=== PATIENT | male | born 1990 | race Caucasian/White ===

== ENCOUNTER 2016-09-23 17:45 | Emergency (ER) | payer OTHER ==
[~2016-09-23] VITALS: Ht 170.2 cm; Wt 44.0 kg
[2016-09-23] MEDS ORDERED: RISP1 PO (18:31)
[2016-09-23] MEDS ORDERED: HALO1 PO (18:31)
[2016-09-23] MEDS ORDERED: ABAC1TAB15 PO (18:31)
[2016-09-23 19:02] LABS: BASOPHILS # (AUTO) 0.05 K/uL (0.00-0.20); BASOPHILS % (AUTO) 0.7 % (0.0-2.0); EOSINOPHILS # (AUTO) 0.36 K/uL (0.00-0.70); EOSINOPHILS % (AUTO) 5.07 % (1.0-6.0); LYMPHOCYTES # (AUTO) 2.4 K/uL (1.0-4.8); LYMPHOCYTES % (AUTO) 33.8 % (22.0-44.0); MEAN CORPUSCULAR HGB CONC 33.3 G/dL (31.0-37.0); MEAN CORPUSCULAR VOLUME 87 fL (80-100); MONOCYTES # (AUTO) 0.9 K/uL (0.1-1.0); NEUTROPHILS # (AUTO) 3.4 K/uL (1.8-7.7); NEUTROPHILS % (AUTO) 48.4 % (40.0-70.0); PLATELET COUNT (AUTO) 241 K/uL (150-450); RED BLOOD CELL COUNT(AUTO) 4.47 MIL/uL (4.50-5.90); RED CELL DISTRIBUTION WIDTH 18.9 % (11.5-14.5); WHITE BLOOD COUNT (AUTO) 7.1 K/uL (4.5-11.0)
[2016-09-23 19:08] LABS: ANION GAP 8 mmol/L (8-16); CALCIUM, TOTAL 8.7 mg/dL (8.8-10.5); CARBON DIOXIDE 29 mmol/L (22-29); CHLORIDE 102 mmol/L (98-107); CREATININE 0.71 mg/dL (0.60-1.30); GLOMERULAR FILTR. RATE CALC > 60 mL/min (>60); POTASSIUM 4.3 mmol/L (3.5-5.1); SODIUM SERUM 139 mmol/L (136-145); UREA NITROGEN, BLOOD 15 mg/dL (7-18)
[2016-09-23 19:15] LABS: ALANINE AMINOTRANSFERASE 65 U/L (12-78); ALBUMIN 3.9 g/dL (3.4-5.0); ASPARTATE AMINOTRANSFERASE 26 U/L (15-37); BILIRUBIN,TOTAL 0.2 mg/dL (0.1-1.0); TOTAL PROTEIN, SERUM 7.9 g/dL (6.4-8.2)
[2016-09-23 21:00] VITALS: BP 126/72
== END 2016-09-23 21:04 | disposition home or self-care (01) ==
LOC: EMS 17:47
DX: F25.9 Schizoaffective disorder, unspecified (principal); F32.9 Major depressive disorder, single episode, unspecified; F41.9 Anxiety disorder, unspecified; F12.10 Cannabis abuse, uncomplicated; F15.10 Other stimulant abuse, uncomplicated; F17.210 Nicotine dependence, cigarettes, uncomplicated
CPT/HCPCS: 36415; 80053; 80307; 85025; 99285; G0480

== ENCOUNTER 2024-04-04 11:16 | Inpatient (IN) | payer MEDICAID, OTHER ==
[~2024-04-04] VITALS: Ht 170.2 cm; Wt 50.0 kg
[~2024-04-04 11:16] MED LIST: ABAC1TAB15 PO; HALO1TAB2 PO; RISP1TAB48 PO
[2024-04-04 11:50] LABS: BASOPHILS % (AUTO) 0.6 % (0.0-2.0); EOSINOPHILS % (AUTO) 4.4 % (1.0-6.0); HEMATOCRIT 32.2 % (41-53); HEMOGLOBIN 10.5 g/dL (13.5-17.5); LYMPHOCYTES # (AUTO) 0.5 K/uL (1.0-4.8); LYMPHOCYTES % (AUTO) 11.1 % (22.0-44.0); MEAN CORPUSCULAR HEMOGLOBIN 27.5 pg (26.0-34.0); MEAN CORPUSCULAR HGB CONC 32.7 G/dL (31.0-37.0); MEAN CORPUSCULAR VOLUME 84 fL (80-100); MONOCYTES # (AUTO) 0.8 K/uL (0.1-1.0); MONOCYTES % (AUTO) 16.5 % (2.0-9.0); NEUTROPHILS # (AUTO) 3.2 K/uL (1.8-7.7); NEUTROPHILS % (AUTO) 67.4 % (40.0-70.0); PLATELET COUNT (AUTO) 143 K/uL (150-450); RED BLOOD CELL COUNT(AUTO) 3.82 MIL/uL (4.50-5.90); RED CELL DISTRIBUTION WIDTH 14.8 % (11.5-14.5); WHITE BLOOD COUNT (AUTO) 4.8 K/uL (4.5-11.0)
[2024-04-04 11:57] LABS: ANION GAP 8 mmol/L (8-16); CALCIUM, TOTAL 8.2 mg/dL (8.8-10.5); CARBON DIOXIDE 30 mmol/L (22-29); CHLORIDE 105 mmol/L (98-107); GLOMERULAR FILTR. RATE CALC > 60 mL/min (>60); GLUCOSE,RANDOM 88 mg/dL (70-110); POTASSIUM 3.4 mmol/L (3.5-5.1); SODIUM SERUM 142 mmol/L (136-145); UREA NITROGEN, BLOOD 17 mg/dL (7-18)
[2024-04-04 12:01] LABS: COVID AG,FIA SOURCE NASAL SWAB
[2024-04-04 12:21] LABS: SARS-COV2 (COVID) ANTIGEN,FIA Negative (Negative)
[2024-04-04] MEDS: HALOPERIDOL LACTATE 5 MG/ML VIAL IM ONE (12:53)
[2024-04-04] MEDS: DiphenhydrAMINE HCL 50 MG/ML VIAL IM ONE (12:53)
[2024-04-04] MEDS: LORazepam 2 MG/ML VIAL IM ONE (12:53)
[2024-04-04 13:30] LABS: ALCOHOL, BLOOD (SERUM) < 3 mg/dL (0-10)
[2024-04-04 18:22] VITALS: BP 106/71; PULSE 88; RESP 22; TEMP 97.8
[2024-04-04 20:10] VITALS: BP 106/71; PULSE 87; RESP 22; TEMP 97.8
[2024-04-04] MEDS ORDERED: ONDANSETRON HCL 4 MG TABLET PO PRN (20:30)
[2024-04-04] MEDS ORDERED: CloNIDine HCL 0.1 MG TABLET PO PRN (20:30)
[2024-04-04] MEDS ORDERED: ACETAMINOPHEN 325 MG TABLET PO PRN (20:30)
[2024-04-04] MEDS ORDERED: PETROLATUM,WHITE 28 GM JELLY TP PRN (20:30)
[2024-04-04] MEDS ORDERED: LOPERAMIDE HCL 2 MG CAPSULE PO PRN (20:30)
[2024-04-04] MEDS ORDERED: NICOTINE 14 MG/24 HOUR PATCH TD PRN (20:30)
[2024-04-04] MEDS ORDERED: MAG HYDROX/ALUMINUM HYD/SIMETH ES 30 ML SUSPENSION UDCUP PO PRN (20:30)
[2024-04-04] MEDS ORDERED: IBUPROFEN 400 MG TABLET PO PRN (20:30)
[2024-04-04] MEDS ORDERED: MAGNESIUM HYDROXIDE SUSPENSION 30 ML UDCUP PO PRN (20:30)
[2024-04-04] MEDS ORDERED: GuaiFENesin/D-METHORPHAN [SUGAR-FREE] 200-20MG/10 ML SYRUP UDCUP PO PRN (20:30)
[2024-04-04] MEDS ORDERED: DOCUSATE SODIUM 100 MG CAPSULE PO PRN (20:30)
[2024-04-04] MEDS ORDERED: ALBUTEROL SULFATE HFA 90 MCG/PUFF 8 GM INHALER IH PRN (20:30)
[2024-04-05 08:19] LABS: HEMOGLOBIN A1C 5.9 % (3.8-5.6)
[2024-04-05 08:32] LABS: CHOL/HDL RATIO 3.1 (4.2-7.3)
[2024-04-05 09:29] VITALS: BP 104/59; PULSE 91; RESP 17; TEMP 97.6; O2SAT 98
[2024-04-05 10:39] LABS: THYROID STIMULATING HORMONE 1.05 uIU/mL (0.36-3.74)
[2024-04-05] MEDS ORDERED: PNEUMOCOCCAL VACCINE POLYVALENT 0.5 ML SYRINGE [PPSV23] IM. ONE (14:30)
[2024-04-05] MEDS: RisperiDONE 0.5 MG TABLET PO SCH (17:56)
[2024-04-05 20:29] VITALS: BP 100/55; PULSE 96; RESP 17; TEMP 97.7; O2SAT 99
[2024-04-06] MEDS: ZOLPIDEM TARTRATE 10 MG TABLET PO PRN (03:10)
[2024-04-06] MEDS: LORazepam 2 MG TABLET PO PRN (03:10)
[2024-04-06 08:07] VITALS: BP 106/69; PULSE 100; RESP 16; TEMP 97.3; O2SAT 100
[2024-04-06] MEDS ORDERED: *NON-FORMULARY MED [ENTER DRUG, DOSE, FREQ IN COMMENTS] CLINICAL ONE (09:15)
[2024-04-06] MEDS: DOLUTEGRAVIR SODIUM 50 MG TABLET PO SCH (17:17)
[2024-04-06] MEDS: ABACAVIR SULFATE 300 MG TABLET PO SCH (17:17)
[2024-04-06] MEDS: HALOPERIDOL 5 MG TABLET PO PRN (17:22)
[2024-04-06 20:21] VITALS: BP 111/72; PULSE 86; RESP 17; TEMP 98; O2SAT 99
[2024-04-07 08:05] VITALS: BP 100/63; PULSE 97; RESP 16; TEMP 98.2; O2SAT 98
[2024-04-07 20:21] VITALS: RESP 16
[2024-04-08 08:05] VITALS: BP 108/60; PULSE 84; RESP 17; TEMP 97.5; O2SAT 99
[2024-04-08 23:49] VITALS: BP 110/64; PULSE 80; RESP 16; TEMP 97.1; O2SAT 99
[2024-04-09 08:19] VITALS: BP 100/60; PULSE 100; RESP 16; TEMP 97.5; O2SAT 100
[2024-04-09 08:53] LABS: APPEARANCE,URINE CLEAR (CLEAR); BILIRUBIN,URINE NEGATIVE (NEGATIVE); COLOR,URINE LIGHT YELLOW (YELLOW); GLUCOSE, URINE (UA) NEGATIVE (NEGATIVE); KETONES,URINE NEGATIVE (NEGATIVE); LEUKOCYTE ESTERASE ,URINE NEGATIVE (NEGATIVE); NITRATE,URINE NEGATIVE (NEGATIVE); OCCULT BLOOD,URINE NEGATIVE (NEGATIVE); PROTEIN,URINE NEGATIVE (NEGATIVE); SPECIFIC GRAVITIY, URINE 1.017 (1.003-1.030); UROBILINOGEN,URINE <=1.0 mg/dL (<=1.0)
[2024-04-09 09:02] LABS: ALCOHOL, URINE DRUG SCREEN NEGATIVE (NEGATIVE); AMPHET/METH SCREEN,URINE NEGATIVE (NEGATIVE); BARBITURATE SCREEN, URINE NEGATIVE (NEGATIVE); BENZODIAZEPINES SCREEN,URINE NEGATIVE (NEGATIVE); CANNABINOID SCREEN,URINE NEGATIVE (NEGATIVE); COCAINE SCREEN,URINE NEGATIVE (NEGATIVE); METHADONE SCREEN, URINE NEGATIVE (NEGATIVE); OPIATE SCREEN,URINE NEGATIVE (NEGATIVE); PHENCYCLIDINE SCREEN,URINE NEGATIVE (NEGATIVE)
== END 2024-04-09 10:45 | disposition left against medical advice (07) | DRG 750 ==
LOC: EMS 11:16 → B3A 15:04
PROVIDERS: ADMIT Psychiatry & Neurology Child & Adolescent Psychiatry; ATTEND Psychiatry & Neurology Child & Adolescent Psychiatry
PROC: GZ52ZZZ Individual Psychotherapy, Cognitive (ICD-10-PCS; principal; 2024-04-05)
PROC: GZ56ZZZ Individual Psychotherapy, Supportive (ICD-10-PCS; 2024-04-05)
DX: F20.9 Schizophrenia, unspecified (principal); Z91.148 Patient's other noncompliance with medication regimen for other reason; D64.9 Anemia, unspecified; E87.6 Hypokalemia; F32.A Depression, unspecified; F41.9 Anxiety disorder, unspecified; Z20.822 Contact with and (suspected) exposure to COVID-19; T43.596A Underdosing of other antipsychotics and neuroleptics, initial encounter; F17.210 Nicotine dependence, cigarettes, uncomplicated; Z79.899 Other long term (current) drug therapy; Y92.89 Other specified places as the place of occurrence of the external cause
CPT/HCPCS: 80048; 80061; 80307; 81003; 83036; 84443; 85025; G0480; J1200; J1630; J2060

== ENCOUNTER 2024-04-16 18:12 | Inpatient (IN) | payer MEDICAID, OTHER ==
[~2024-04-16] VITALS: Ht 170.2 cm; Wt 49.0 kg
[2024-04-16 22:47] LABS: COVID AG,FIA SOURCE NASAL SWAB
[2024-04-16 23:06] LABS: SARS-COV2 (COVID) ANTIGEN,FIA Negative (Negative)
[2024-04-16] MEDS: HALOPERIDOL 1 MG TABLET PO ONE (23:24)
[2024-04-16] MEDS: RisperiDONE 1 MG TABLET PO ONE (23:24)
[2024-04-17] MEDS ORDERED: DiphenhydrAMINE HCL 50 MG/ML VIAL ONE (06:26)
[2024-04-17] MEDS ORDERED: LORazepam 2 MG/ML VIAL ONE (06:26)
[2024-04-17] MEDS: DiphenhydrAMINE HCL 50 MG/ML VIAL IM ONE (06:30)
[2024-04-17] MEDS: LORazepam 2 MG/ML VIAL IM ONE (06:30)
[2024-04-17 06:36] LABS: APPEARANCE,URINE CLEAR (CLEAR); BILIRUBIN,URINE NEGATIVE (NEGATIVE); COLOR,URINE YELLOW (YELLOW); GLUCOSE, URINE (UA) NEGATIVE (NEGATIVE); KETONES,URINE NEGATIVE (NEGATIVE); LEUKOCYTE ESTERASE ,URINE MODERATE (NEGATIVE); NITRATE,URINE NEGATIVE (NEGATIVE); OCCULT BLOOD,URINE NEGATIVE (NEGATIVE); PROTEIN,URINE 30-70 mg/dL (NEGATIVE); SPECIFIC GRAVITIY, URINE 1.033 (1.003-1.030); UROBILINOGEN,URINE <=1.0 mg/dL (<=1.0)
[2024-04-17 06:40] LABS: ALCOHOL, URINE DRUG SCREEN NEGATIVE (NEGATIVE); AMPHET/METH SCREEN,URINE POSITIVE (NEGATIVE); BARBITURATE SCREEN, URINE NEGATIVE (NEGATIVE); BENZODIAZEPINES SCREEN,URINE NEGATIVE (NEGATIVE); CANNABINOID SCREEN,URINE POSITIVE (NEGATIVE); COCAINE SCREEN,URINE NEGATIVE (NEGATIVE); METHADONE SCREEN, URINE NEGATIVE (NEGATIVE); OPIATE SCREEN,URINE NEGATIVE (NEGATIVE); PHENCYCLIDINE SCREEN,URINE NEGATIVE (NEGATIVE)
[2024-04-17 06:53] LABS: BACTERIA,URINE None Seen /HPF (None Seen); RBC,URINE None Seen /HPF (0-2); SQUAMOUS EPITHELIAL CELL,UR Few /LPF (None Seen)
[2024-04-17 10:14] VITALS: BP 92/61; PULSE 72; RESP 18; TEMP 97.2; O2SAT 99
[2024-04-17 10:15] VITALS: BP 92/61; PULSE 78; RESP 18; TEMP 97.2; O2SAT 99
[2024-04-17] MEDS: RisperiDONE 1 MG TABLET PO SCH (13:11)
[2024-04-17] MEDS: DOLUTEGRAVIR SODIUM 50 MG TABLET PO SCH (13:19)
[2024-04-17] MEDS: ABACAVIR SULFATE 300 MG TABLET PO SCH (13:19)
[2024-04-17] MEDS: LORazepam 2 MG TABLET PO PRN (17:26)
[2024-04-17] MEDS: HALOPERIDOL 5 MG TABLET PO PRN (17:26)
[2024-04-17 21:36] VITALS: RESP 18
[2024-04-18 09:07] VITALS: BP 90/50; PULSE 92; RESP 19; TEMP 97.5; O2SAT 100
[2024-04-18] MEDS ORDERED: CloNIDine HCL 0.1 MG TABLET PO PRN (16:00)
[2024-04-18] MEDS ORDERED: GuaiFENesin/D-METHORPHAN [SUGAR-FREE] 200-20MG/10 ML SYRUP UDCUP PO PRN (16:00)
[2024-04-18] MEDS ORDERED: PETROLATUM,WHITE 28 GM JELLY TP PRN (16:00)
[2024-04-18] MEDS ORDERED: ONDANSETRON 4 MG TABLET PO PRN (16:00)
[2024-04-18] MEDS ORDERED: NICOTINE 14 MG/24 HOUR PATCH TD PRN (16:00)
[2024-04-18] MEDS ORDERED: ALBUTEROL SULFATE HFA 90 MCG/PUFF 8 GM INHALER IH PRN (16:00)
[2024-04-18] MEDS ORDERED: ACETAMINOPHEN 325 MG TABLET PO PRN (16:00)
[2024-04-18] MEDS ORDERED: DOCUSATE SODIUM 100 MG CAPSULE PO PRN (16:00)
[2024-04-18] MEDS ORDERED: IBUPROFEN 400 MG TABLET PO PRN (16:00)
[2024-04-18] MEDS ORDERED: MAG HYDROX/ALUMINUM HYD/SIMETH ES 30 ML SUSPENSION UDCUP PO PRN (16:00)
[2024-04-18] MEDS ORDERED: MAGNESIUM HYDROXIDE SUSPENSION 30 ML UDCUP PO PRN (16:00)
[2024-04-18 21:01] VITALS: BP 93/60; PULSE 90; RESP 18; TEMP 97.6; O2SAT 99
[2024-04-18] MEDS: ZOLPIDEM TARTRATE 10 MG TABLET PO PRN (22:29)
[2024-04-19] MEDS: MULTIVITAMINS, THERAPEUTIC TABLET PO SCH (07:59)
[2024-04-19 10:07] LABS: ALANINE AMINOTRANSFERASE 28 U/L (12-78); ALKALINE PHOSPHATASE 84 U/L (46-116); ANION GAP 11 mmol/L (8-16); ASPARTATE AMINOTRANSFERASE 31 U/L (15-37); BILIRUBIN,TOTAL 0.2 mg/dL (0.1-1.0); CALCIUM, TOTAL 8.2 mg/dL (8.8-10.5); CARBON DIOXIDE 26 mmol/L (22-29); CHLORIDE 102 mmol/L (98-107); CREATININE 0.68 mg/dL (0.60-1.30); GLOMERULAR FILTR. RATE CALC > 60 mL/min (>60); GLUCOSE,RANDOM 82 mg/dL (70-110); PHOSPHORUS 3.5 mg/dL (2.5-4.9); POTASSIUM 3.9 mmol/L (3.5-5.1); SODIUM SERUM 139 mmol/L (136-145); THYROID STIMULATING HORMONE 1.92 uIU/mL (0.36-3.74); TOTAL PROTEIN, SERUM 7.5 g/dL (6.4-8.2); UREA NITROGEN, BLOOD 14 mg/dL (7-18)
[2024-04-19 10:44] VITALS: BP 104/71; PULSE 92; RESP 17; TEMP 97.9; O2SAT 100
[2024-04-19 13:57] LABS: BASOPHILS % (AUTO) 0.7 % (0.0-2.0); EOSINOPHILS % (AUTO) 4.2 % (1.0-6.0); HEMATOCRIT 32.7 % (41-53); HEMOGLOBIN 10.7 g/dL (13.5-17.5); LYMPHOCYTES # (AUTO) 0.8 K/uL (1.0-4.8); LYMPHOCYTES % (AUTO) 19.5 % (22.0-44.0); MEAN CORPUSCULAR HGB CONC 32.6 G/dL (31.0-37.0); MEAN CORPUSCULAR VOLUME 86 fL (80-100); MONOCYTES # (AUTO) 0.7 K/uL (0.1-1.0); MONOCYTES % (AUTO) 16.9 % (2.0-9.0); NEUTROPHILS # (AUTO) 2.4 K/uL (1.8-7.7); NEUTROPHILS % (AUTO) 58.7 % (40.0-70.0); PLATELET COUNT (AUTO) 211 K/uL (150-450); RED BLOOD CELL COUNT(AUTO) 3.81 MIL/uL (4.50-5.90); RED CELL DISTRIBUTION WIDTH 15.8 % (11.5-14.5)
[2024-04-19] MEDS: ETHYL ALCOHOL 62% ANTISEPTIC NASAL SANITIZER 0.6 ML AMPUL NASAL SCH (20:56)
[2024-04-19 23:44] VITALS: BP 113/65; PULSE 100; RESP 18; TEMP 97.8; O2SAT 100
[2024-04-20 08:37] LABS: CHOL/HDL RATIO 2.7 (4.2-7.3)
[2024-04-20 10:04] VITALS: BP 122/76; PULSE 100; RESP 18; TEMP 97.4; O2SAT 98
[2024-04-20 20:02] VITALS: RESP 18
[2024-04-21 08:43] VITALS: BP 111/70; PULSE 89; RESP 18; TEMP 97.8; O2SAT 98
[2024-04-21 22:10] VITALS: RESP 18
[2024-04-22 10:14] VITALS: BP 118/74; PULSE 90; RESP 18; TEMP 96.9; O2SAT 99
[2024-04-22] MEDS: RisperiDONE 1 MG TABLET PO SCH (18:03)
[2024-04-22 21:28] VITALS: BP 98/54; PULSE 99; RESP 18; TEMP 97.2; O2SAT 98
[2024-04-23] MEDS: LOPERAMIDE HCL 2 MG CAPSULE PO PRN (07:16)
[2024-04-23 09:11] VITALS: BP 101/83; PULSE 100; RESP 16; TEMP 97.7; O2SAT 99
[2024-04-23 21:59] VITALS: BP 116/78; PULSE 89; RESP 18; TEMP 97.3; O2SAT 99
[2024-04-24 08:15] VITALS: BP 108/66; PULSE 99; RESP 19; TEMP 97.6; O2SAT 100
[2024-04-24 17:52] VITALS: BP 129/72; PULSE 99; RESP 18
[2024-04-24 21:51] VITALS: BP 113/71; PULSE 89; RESP 18; TEMP 97.7; O2SAT 96
[2024-04-25 09:14] VITALS: BP 107/59; PULSE 88; RESP 18; TEMP 97; O2SAT 99
[2024-04-25] MEDS ORDERED: RISP-31 PO (12:16)
[2024-04-25 21:29] VITALS: BP 132/67; PULSE 103; RESP 18; TEMP 97.6; O2SAT 98
== END 2024-04-26 08:05 | disposition home or self-care (01) | DRG 750 ==
LOC: EMS 18:12 → 3EI 04-17 09:11 → EMS 04-17 09:11 → 3EC 04-17 09:52 → 3EI 04-23 16:35
PROVIDERS: ADMIT Psychiatry & Neurology Child & Adolescent Psychiatry; ATTEND Psychiatry & Neurology Child & Adolescent Psychiatry
PROC: GZHZZZZ Group Psychotherapy (ICD-10-PCS; principal; 2024-04-19)
DX: F20.0 Paranoid schizophrenia (principal); D64.9 Anemia, unspecified; F32.A Depression, unspecified; F41.9 Anxiety disorder, unspecified; Z20.822 Contact with and (suspected) exposure to COVID-19; G47.00 Insomnia, unspecified; I10 Essential (primary) hypertension; Z59.00 Homelessness unspecified; Z87.891 Personal history of nicotine dependence
CPT/HCPCS: 80053; 80061; 80307; 81001; 83036; 83735; 84100; 84443; 85025; 87081; 99285; J1200; J2060

== ENCOUNTER 2024-11-26 19:29 | Inpatient (IN) | payer MEDICAID, OTHER ==
[~2024-11-26] VITALS: Ht 170.2 cm; Wt 55.6 kg
[~2024-11-26 19:29] MED LIST changes: -ABAC1TAB15 PO; -HALO1TAB2 PO; +RISP-31 PO; -RISP1TAB48 PO
[2024-11-26 19:52] LABS: BASOPHILS % (AUTO) 0.4 % (0.0-2.0); EOSINOPHILS % (AUTO) 1.4 % (1.0-6.0); HEMATOCRIT 43.8 % (41-53); HEMOGLOBIN 14.1 g/dL (13.5-17.5); LYMPHOCYTES # (AUTO) 1.5 K/uL (1.0-4.8); LYMPHOCYTES % (AUTO) 24.1 % (22.0-44.0); MEAN CORPUSCULAR HEMOGLOBIN 29.4 pg (26.0-34.0); MEAN CORPUSCULAR HGB CONC 32.3 G/dL (31.0-37.0); MEAN CORPUSCULAR VOLUME 91 fL (80-100); MONOCYTES # (AUTO) 0.3 K/uL (0.1-1.0); MONOCYTES % (AUTO) 4.7 % (2.0-9.0); NEUTROPHILS # (AUTO) 4.4 K/uL (1.8-7.7); NEUTROPHILS % (AUTO) 69.4 % (40.0-70.0); PLATELET COUNT (AUTO) 260 K/uL (150-450); RED BLOOD CELL COUNT(AUTO) 4.82 MIL/uL (4.50-5.90); RED CELL DISTRIBUTION WIDTH 15.4 % (11.5-14.5); WHITE BLOOD COUNT (AUTO) 6.4 K/uL (4.5-11.0)
[2024-11-26 20:01] LABS: ANION GAP 15 mmol/L (8-16); CARBON DIOXIDE 22 mmol/L (22-29); CHLORIDE 105 mmol/L (98-107); CREATININE 0.87 mg/dL (0.60-1.30); GLOMERULAR FILTR. RATE CALC > 60 mL/min (>60); GLUCOSE,RANDOM 150 mg/dL (70-110); POTASSIUM 3.3 mmol/L (3.5-5.1); SODIUM SERUM 142 mmol/L (136-145); UREA NITROGEN, BLOOD 13 mg/dL (7-18)
[2024-11-26 20:01] LABS: COVID AG,FIA SOURCE NASAL SWAB
[2024-11-26 20:08] LABS: PROTHROMBIN TIME 11.6 SEC (9.4-11.6)
[2024-11-26 20:13] LABS: ALCOHOL, BLOOD (SERUM) < 3 mg/dL (0-10)
[2024-11-26] MEDS: SODIUM CHLORIDE 0.9% 1,000 ML IV ONE ×2 (20:13→21:33)
[2024-11-26] MEDS: MAGNESIUM SULFATE 1 GM in DEXTROSE 5%-WATER 50 ML IV ONE (20:14)
[2024-11-26 20:15] LABS: B-TYPE NATRIURETIC PEPTIDE < 5 pg/mL (0-100)
[2024-11-26 20:16] LABS: CREATINE KINASE, TOTAL ONLY 84 U/L (39-308); TROPONIN I-HIGH SENSITIVITY 5 ng/L (<76)
[2024-11-26 20:21] LABS: SARS-COV2 (COVID) ANTIGEN,FIA Negative (Negative)
[2024-11-26 20:28] LABS: ALBUMIN 3.7 g/dL (3.4-5.0); BILIRUBIN,DIRECT 0.1 mg/dL (0.00-0.20); BILIRUBIN,TOTAL 0.3 mg/dL (0.1-1.0); TOTAL PROTEIN, SERUM 8.3 g/dL (6.4-8.2)
[2024-11-26] MEDS: POTASSIUM CHLORIDE 20 MEQ ER TABLET PO ONE (20:42)
[2024-11-26 21:39] LABS: VALPROIC ACID 487 mcg/mL (50-100)
[2024-11-26] MEDS: POTASSIUM CHL 10 MEQ/WATER 50 ML IV ONE (22:05)
[2024-11-26] MEDS ORDERED: ONDANSETRON HCL 4 MG/2 ML VIAL IVP PRN (22:45)
[2024-11-26] MEDS ORDERED: MAGNESIUM HYDROXIDE SUSPENSION 30 ML UDCUP PO PRN (22:45)
[2024-11-26] MEDS ORDERED: ACETAMINOPHEN 325 MG TABLET PO PRN (22:45)
[2024-11-26] MEDS ORDERED: BISACODYL 10 MG RECTAL RECTAL SUPPOSITORY PR PRN (22:45)
[2024-11-26] MEDS: HEPARIN SODIUM,PORCINE 5,000 UNITS/ML VIAL SQ SCH (23:04)
[2024-11-26 23:56] LABS: ANION GAP 12 mmol/L (8-16); CALCIUM, TOTAL 7.7 mg/dL (8.8-10.5); CARBON DIOXIDE 22 mmol/L (22-29); CHLORIDE 110 mmol/L (98-107); CREATININE 0.86 mg/dL (0.60-1.30); GLOMERULAR FILTR. RATE CALC > 60 mL/min (>60); GLUCOSE,RANDOM 107 mg/dL (70-110); POTASSIUM 4.2 mmol/L (3.5-5.1); SODIUM SERUM 144 mmol/L (136-145); UREA NITROGEN, BLOOD 11 mg/dL (7-18)
[2024-11-27] MEDS ORDERED: LORazepam 2 MG/ML VIAL ONE (00:42)
[2024-11-27] MEDS: LORazepam 2 MG/ML VIAL IVP ONE ×2 (00:46→04:12)
[2024-11-27] MEDS: GLUCAGON,HUMAN RECOMBINANT 1 MG VIAL IVP ONE (01:04)
[2024-11-27] MEDS: PHENYLEPHRINE HCL IN 0.9% NACL 400 MCG/10 ML SYRINGE IVP ONE (01:05)
[2024-11-27] MEDS ORDERED: FentaNYL CIT 1000MCG/0.9% NACL 100 ML IV PRN (01:15)
[2024-11-27] MEDS ORDERED: ETOMIDATE 2 MG/ML 10 ML VIAL ONE (01:15)
[2024-11-27] MEDS ORDERED: ROCURONIUM BROMIDE 10 MG/ML 5 ML VIAL ONE (01:16)
[2024-11-27] MEDS: NOREPINEPHRINE 8 MG/0.9 % NACL 250 ML IV PRN (01:24)
[2024-11-27 01:56] LABS: APPEARANCE,URINE CLEAR (CLEAR); BILIRUBIN,URINE NEGATIVE (NEGATIVE); COLOR,URINE COLORLESS (YELLOW); GLUCOSE, URINE (UA) NEGATIVE (NEGATIVE); KETONES,URINE NEGATIVE (NEGATIVE); LEUKOCYTE ESTERASE ,URINE NEGATIVE (NEGATIVE); NITRATE,URINE NEGATIVE (NEGATIVE); OCCULT BLOOD,URINE NEGATIVE (NEGATIVE); PH,URINE 5.5 (5.0-8.0); PH,URINE DRUG SCREEN 5.5 (5.0-8.0); PROTEIN,URINE NEGATIVE (NEGATIVE); SPECIFIC GRAVITIY, URINE 1.011 (1.003-1.030); UROBILINOGEN,URINE <=1.0 mg/dL (<=1.0)
[2024-11-27 02:00] LABS: AMPHET/METH SCREEN,URINE NEGATIVE (NEGATIVE); BARBITURATE SCREEN, URINE NEGATIVE (NEGATIVE); BENZODIAZEPINES SCREEN,URINE NEGATIVE (NEGATIVE); CANNABINOID SCREEN,URINE NEGATIVE (NEGATIVE); COCAINE SCREEN,URINE NEGATIVE (NEGATIVE); METHADONE SCREEN, URINE NEGATIVE (NEGATIVE); OPIATE SCREEN,URINE NEGATIVE (NEGATIVE); PHENCYCLIDINE SCREEN,URINE NEGATIVE (NEGATIVE)
[2024-11-27 02:02] LABS: ALCOHOL, URINE DRUG SCREEN NEGATIVE (NEGATIVE)
[2024-11-27] MEDS: CALCIUM GLUCONATE 1,000 MG in DEXTROSE 5%-WATER 50 ML IV ONE (03:10)
[2024-11-27] MEDS: LevOCARNitine 200 MG/ML 5 ML VIAL IVP ONE (03:21)
[2024-11-27] MEDS: ACETAMINOPHEN 650 MG/ISO-OSM 65 ML IV ONE (04:39)
[2024-11-27] MEDS: LORazepam 2 MG/ML VIAL IVP PRN (05:36)
[2024-11-27] MEDS: PANTOPRAZOLE SODIUM 40 MG DR TABLET PO SCH (08:23)
[2024-11-27] MEDS: DOCUSATE SODIUM 100 MG CAPSULE PO SCH (08:23)
[2024-11-27] MEDS: ACETAMINOPHEN 650 MG RECTAL SUPPOSITORY PR PRN (09:06)
[2024-11-27] MEDS ORDERED: 0.9% SODIUM CHLORIDE 10 ML SYRINGE IVP PRN (10:30)
[2024-11-27] MEDS: SODIUM CHLORIDE 0.9% 1,800 ML IV ONE (10:49)
[2024-11-27] MEDS: PIPERACILLIN/TAZO 3.375 GM/D5W 50 ML IV ONE (10:50)
[2024-11-27 11:02] LABS: GLUCOSE,RANDOM 59 mg/dL (70-110); LACTATE DEHYDROGENASE 224 U/L (85-227)
[2024-11-27 11:32] LABS: LACTIC ACID 2.7 mmol/L (0.4-2.0)
[2024-11-27 12:35] LABS: INFLUENZA TYPE A NEGATIVE FOR TYPE A (NEGATIVE); INFLUENZA TYPE B NEGATIVE FOR TYPE B (NEGATIVE)
[2024-11-27] MEDS: PIPERACILLIN/TAZO 3.375 GM/D5W 50 ML IV SCH (17:27)
[2024-11-27 18:00] VITALS: BP 90/59; PULSE 71; RESP 19; TEMP 97.9; O2SAT 98
[2024-11-27 19:22] VITALS: BP 103/73; PULSE 74; RESP 17; TEMP 97.7; O2SAT 98
[2024-11-27] MEDS: SODIUM CHLORIDE 0.9% 250 ML IV ONE (22:23)
[2024-11-27] MEDS: ZOLPIDEM TARTRATE 5 MG TABLET PO PRN (23:15)
[2024-11-28] VITALS: BP 110/83; PULSE 70; RESP 18; TEMP 97.7; O2SAT 99
[2024-11-28 04:03] VITALS: BP 124/64; PULSE 60; RESP 18; TEMP 97.9; O2SAT 96
[2024-11-28 07:27] LABS: BASOPHILS % (AUTO) 0.6 % (0.0-2.0); EOSINOPHILS % (AUTO) 0.1 % (1.0-6.0); HEMOGLOBIN 13.4 g/dL (13.5-17.5); LYMPHOCYTES # (AUTO) 0.5 K/uL (1.0-4.8); LYMPHOCYTES % (AUTO) 6.1 % (22.0-44.0); MEAN CORPUSCULAR HEMOGLOBIN 30.1 pg (26.0-34.0); MEAN CORPUSCULAR HGB CONC 33.5 G/dL (31.0-37.0); MEAN CORPUSCULAR VOLUME 90 fL (80-100); MONOCYTES % (AUTO) 13.2 % (2.0-9.0); NEUTROPHILS # (AUTO) 6.1 K/uL (1.8-7.7); PLATELET COUNT (AUTO) 214 K/uL (150-450); RED BLOOD CELL COUNT(AUTO) 4.45 MIL/uL (4.50-5.90); RED CELL DISTRIBUTION WIDTH 14.7 % (11.5-14.5); WHITE BLOOD COUNT (AUTO) 7.6 K/uL (4.5-11.0)
[2024-11-28 07:33] VITALS: BP 107/73; PULSE 60; RESP 18; TEMP 98.1; O2SAT 99
[2024-11-28 07:39] LABS: ANION GAP 11 mmol/L (8-16); CARBON DIOXIDE 23 mmol/L (22-29); CHLORIDE 105 mmol/L (98-107); CREATININE 0.79 mg/dL (0.60-1.30); GLOMERULAR FILTR. RATE CALC > 60 mL/min (>60); GLUCOSE,RANDOM 71 mg/dL (70-110); POTASSIUM 4.1 mmol/L (3.5-5.1); SODIUM SERUM 139 mmol/L (136-145); UREA NITROGEN, BLOOD 12 mg/dL (7-18)
[2024-11-28 11:32] VITALS: BP 107/82; PULSE 81; RESP 16; TEMP 98.1; O2SAT 98
[2024-11-28 15:03] VITALS: BP 99/67; PULSE 73; RESP 18; TEMP 97.8; O2SAT 98
[2024-11-28 20:31] VITALS: BP 103/80; PULSE 94; RESP 18; TEMP 98.4; O2SAT 99
[2024-11-28 23:15] LABS: HEMATOCRIT 39.5 % (41-53); HEMOGLOBIN 13.1 g/dL (13.5-17.5)
[2024-11-29] VITALS: BP 105/68; PULSE 78; RESP 17; TEMP 97.9; O2SAT 99
[2024-11-29 01:36] LABS: APPEARANCE,URINE CLEAR (CLEAR); BILIRUBIN,URINE NEGATIVE (NEGATIVE); COLOR,URINE LIGHT YELLOW (YELLOW); GLUCOSE, URINE (UA) NEGATIVE (NEGATIVE); KETONES,URINE NEGATIVE (NEGATIVE); LEUKOCYTE ESTERASE ,URINE TRACE (NEGATIVE); NITRATE,URINE NEGATIVE (NEGATIVE); OCCULT BLOOD,URINE MODERATE (NEGATIVE); PROTEIN,URINE NEGATIVE (NEGATIVE); SPECIFIC GRAVITIY, URINE 1.015 (1.003-1.030); UROBILINOGEN,URINE <=1.0 mg/dL (<=1.0)
[2024-11-29 01:53] LABS: BACTERIA,URINE None Seen /HPF (None Seen); SQUAMOUS EPITHELIAL CELL,UR Few /LPF (None Seen); WBC,URINE 0-2 /HPF (0-5)
[2024-11-29 04:09] VITALS: BP 100/79; PULSE 76; RESP 18; TEMP 98.2; O2SAT 99
[2024-11-29 07:12] LABS: ANION GAP 8 mmol/L (8-16); CALCIUM, TOTAL 8.8 mg/dL (8.8-10.5); CARBON DIOXIDE 27 mmol/L (22-29); CHLORIDE 104 mmol/L (98-107); CREATININE 0.62 mg/dL (0.60-1.30); GLOMERULAR FILTR. RATE CALC > 60 mL/min (>60); GLUCOSE,RANDOM 90 mg/dL (70-110); POTASSIUM 3.5 mmol/L (3.5-5.1); SODIUM SERUM 139 mmol/L (136-145); UREA NITROGEN, BLOOD 14 mg/dL (7-18)
[2024-11-29 07:15] VITALS: BP 94/65; PULSE 68; RESP 19; TEMP 97.9; O2SAT 97
[2024-11-29 07:17] LABS: BASOPHILS % (AUTO) 0.8 % (0.0-2.0); HEMATOCRIT 40.6 % (41-53); HEMOGLOBIN 13.5 g/dL (13.5-17.5); LYMPHOCYTES # (AUTO) 0.7 K/uL (1.0-4.8); LYMPHOCYTES % (AUTO) 13.3 % (22.0-44.0); MEAN CORPUSCULAR HEMOGLOBIN 30.1 pg (26.0-34.0); MEAN CORPUSCULAR HGB CONC 33.4 G/dL (31.0-37.0); MEAN CORPUSCULAR VOLUME 90 fL (80-100); MONOCYTES % (AUTO) 17.2 % (2.0-9.0); NEUTROPHILS # (AUTO) 3.4 K/uL (1.8-7.7); NEUTROPHILS % (AUTO) 67.7 % (40.0-70.0); PLATELET COUNT (AUTO) 183 K/uL (150-450); RED CELL DISTRIBUTION WIDTH 14.8 % (11.5-14.5)
[2024-11-29 07:18] LABS: MONOCYTES # (AUTO) 0.9 K/uL (0.1-1.0)
[2024-11-29 11:52] VITALS: BP 104/58; PULSE 66; RESP 19; TEMP 98; O2SAT 98
[2024-11-29] MEDS ORDERED: HYDROX5L PO (14:39)
[2024-11-29] MEDS ORDERED: DOLU50TA PO (14:39)
[2024-11-29] MEDS ORDERED: PROP60TA19 PO (14:39)
[2024-11-29] MEDS ORDERED: BUPR450T5 PO (14:39)
[2024-11-29] MEDS ORDERED: DAPS100T14 PO (14:39)
[2024-11-29] MEDS ORDERED: VALP250C48 PO (14:39)
[2024-11-29] MEDS ORDERED: EMTR1TAB13 PO (14:39)
[2024-11-29 15:19] VITALS: BP 111/65; PULSE 77; RESP 20; TEMP 98; O2SAT 98
[2024-11-29 19:30] VITALS: BP 96/64; PULSE 73; RESP 18; TEMP 98.1; O2SAT 98
[2024-11-29] MEDS ORDERED: SODIUM CHLORIDE 0.9% 500 ML IV ONE (23:43)
[2024-11-30 04:20] VITALS: BP 96/67; PULSE 74; RESP 18; TEMP 97.5; O2SAT 98
[2024-11-30 07:35] VITALS: BP 104/75; PULSE 80; RESP 18; TEMP 97.9; O2SAT 98
[2024-11-30] MEDS ORDERED: ACET-2247 PO (13:28)
[2024-11-30] MEDS ORDERED: BISA-151 PO (13:29)
[2024-11-30] MEDS ORDERED: AMOX1TAB15 PO (13:32)
[2024-11-30] MEDS ORDERED: BISA10SU11 PR (13:54)
[2024-11-30] MEDS: DOLUTEGRAVIR SODIUM 50 MG TABLET PO SCH (15:21)
[2024-11-30] MEDS: EMTRICITABINE/TENOFOV ALAFENAM 200-25 MG TABLET PO SCH (15:21)
[2024-11-30 15:40] VITALS: BP 100/74; PULSE 82; RESP 16; TEMP 97.5; O2SAT 98
[2024-11-30 20:05] VITALS: BP 92/69; PULSE 94; RESP 18; TEMP 98.1; O2SAT 96
[2024-11-30] MEDS: QUEtiapine FUMARATE 200 MG TABLET PO SCH (20:38)
[2024-12-01 05:52] VITALS: BP 103/63; PULSE 84; RESP 18; TEMP 98.1; O2SAT 98
[2024-12-01 08:07] VITALS: BP 106/70; PULSE 109; RESP 20; TEMP 98; O2SAT 98
[2024-12-01] MEDS: QUEtiapine FUMARATE 25 MG TABLET PO SCH (08:07)
[2024-12-01 16:18] VITALS: BP 101/80; PULSE 107; RESP 20; TEMP 98.1; O2SAT 98
[2024-12-01 19:55] VITALS: BP 94/63; PULSE 93; RESP 20; TEMP 99; O2SAT 98
[2024-12-01 21:33] LABS: COVID AG,FIA SOURCE NASAL SWAB
[2024-12-01 21:51] LABS: SARS-COV2 (COVID) ANTIGEN,FIA Negative (Negative)
[2024-12-02 04:06] VITALS: BP 95/67; PULSE 86; RESP 18; TEMP 97.7; O2SAT 100
== END 2024-12-02 05:13 | DRG 817 ==
LOC: EMS 19:29 → EDH 22:31 → 5S 11-27 18:00 → 6S 11-29 19:38
PROVIDERS: ADMIT Internal Medicine; ATTEND Internal Medicine
DX: T42.6X2A Poisoning by other antiepileptic and sedative-hypnotic drugs, intentional self-harm, initial encounter (principal); J69.0 Pneumonitis due to inhalation of food and vomit; A41.9 Sepsis, unspecified organism; G92.8 Other toxic encephalopathy; R56.9 Unspecified convulsions; F32.A Depression, unspecified; F41.9 Anxiety disorder, unspecified; F25.9 Schizoaffective disorder, unspecified; Z20.822 Contact with and (suspected) exposure to COVID-19; Z65.3 Problems related to other legal circumstances; Z79.899 Other long term (current) drug therapy; Z87.891 Personal history of nicotine dependence; Y92.89 Other specified places as the place of occurrence of the external cause
CPT/HCPCS: 71045; 80048; 80076; 80164; 80307; 81001; 81003; 82140; 82550; 82947; 83605; 83615; 83735; 83880; 84145; 84484; 85014; 85018; 85025; 85610; 85730; 87040; 87804; 93005; 95816; 96365; 96368; 99285; G0378; G0480; J0131; J0610; J1610; J1644; J1955; J2060; J2543; J3475; J3480; J3490; J7040; J7050; J7060; 36415-L1; 36415-TC

== ENCOUNTER 2024-12-01 15:34 | Inpatient (IN) | payer MEDICAID, OTHER ==
[~2024-12-01] VITALS: Ht 170.2 cm; Wt 62.8 kg
[~2024-12-01 15:34] MED LIST changes: +ACET-2247 PO; +AMOX1TAB15 PO; +BISA-151 PO; +BISA10SU11 PR; +BUPR450T5 PO; +DAPS100T14 PO; +DOLU50TA PO; +EMTR1TAB13 PO; +HYDROX5L PO; +PROP60TA19 PO; +VALP250C48 PO
[2024-12-02] MEDS ORDERED: LORazepam 2 MG TABLET PO PRN (03:30)
[2024-12-02] MEDS ORDERED: ZOLPIDEM TARTRATE 10 MG TABLET PO PRN (03:30)
[2024-12-02] MEDS ORDERED: HALOPERIDOL 5 MG TABLET PO PRN (03:30)
[2024-12-02 05:50] VITALS: BP 109/71; PULSE 107; RESP 18; TEMP 97.5; O2SAT 100
[2024-12-02 08:36] VITALS: BP 116/62; PULSE 91; RESP 17; TEMP 98.4; O2SAT 98
[2024-12-02] MEDS: QUEtiapine FUMARATE 25 MG TABLET PO SCH ×2 (10:49→20:43)
[2024-12-02] MEDS ORDERED: IBUPROFEN 400 MG TABLET PO PRN (15:45)
[2024-12-02] MEDS ORDERED: ACETAMINOPHEN 325 MG TABLET PO PRN (15:45)
[2024-12-02] MEDS ORDERED: MAGNESIUM HYDROXIDE SUSPENSION 30 ML UDCUP PO PRN (15:45)
[2024-12-02] MEDS ORDERED: ALBUTEROL SULFATE HFA 90 MCG/PUFF 8 GM INHALER IH PRN (15:45)
[2024-12-02] MEDS ORDERED: GuaiFENesin/D-METHORPHAN [SUGAR-FREE] 200-20MG/10 ML SYRUP UDCUP PO PRN (15:45)
[2024-12-02] MEDS ORDERED: LOPERAMIDE HCL 2 MG CAPSULE PO PRN (15:45)
[2024-12-02] MEDS ORDERED: DOCUSATE SODIUM 100 MG CAPSULE PO PRN (15:45)
[2024-12-02] MEDS ORDERED: ONDANSETRON 4 MG TABLET PO PRN (15:45)
[2024-12-02] MEDS ORDERED: NICOTINE 14 MG/24 HOUR PATCH TD PRN (15:45)
[2024-12-02] MEDS ORDERED: MAG HYDROX/ALUMINUM HYD/SIMETH ES 30 ML SUSPENSION UDCUP PO PRN (15:45)
[2024-12-02] MEDS ORDERED: CloNIDine HCL 0.1 MG TABLET PO PRN (15:45)
[2024-12-02] MEDS ORDERED: PETROLATUM,WHITE 28 GM JELLY TP PRN (15:45)
[2024-12-02] MEDS: AMOX TR/POT CLAV 875 MG/125 MG TABLET PO SCH (17:17)
[2024-12-02 20:22] VITALS: BP 119/67; PULSE 98; RESP 17; TEMP 98.6; O2SAT 100
[2024-12-03 08:27] VITALS: BP 107/70; PULSE 87; RESP 17; TEMP 98.4; O2SAT 99
[2024-12-03 08:42] LABS: HEMOGLOBIN A1C 5.1 % (3.8-5.6)
[2024-12-03 08:53] LABS: CHOL/HDL RATIO 4.7 (4.2-7.3); THYROID STIMULATING HORMONE 0.53 uIU/mL (0.36-3.74)
[2024-12-03] MEDS: EMTRICITABINE/TENOFOV ALAFENAM 200-25 MG TABLET PO SCH (09:23)
[2024-12-03] MEDS: DOLUTEGRAVIR SODIUM 50 MG TABLET PO SCH (09:23)
[2024-12-03 20:10] VITALS: BP 101/68; PULSE 96; RESP 16; TEMP 98.5; O2SAT 97
[2024-12-04 08:19] VITALS: BP 127/83; PULSE 90; RESP 18; TEMP 97.5; O2SAT 98
[2024-12-04] MEDS: ETHYL ALCOHOL 62% ANTISEPTIC NASAL SANITIZER 0.6 ML AMPUL NASAL ONE (09:58)
[2024-12-04] MEDS: ESCITALOPRAM OXALATE 10 MG TABLET PO SCH (18:50)
[2024-12-04 20:00] VITALS: BP 91/56; PULSE 76; RESP 15; TEMP 98.2; O2SAT 98
[2024-12-04] MEDS: ETHYL ALCOHOL 62% ANTISEPTIC NASAL SANITIZER 0.6 ML AMPUL NASAL SCH (20:34)
[2024-12-04] MEDS: CHLORHEXIDINE GLUCONATE 2% TOWELETTE [2'S/6'S] TP SCH (20:34)
[2024-12-05 08:30] VITALS: BP 119/71; PULSE 82; RESP 17; TEMP 97.1; O2SAT 99
[2024-12-05 20:50] VITALS: BP 102/63; PULSE 76; RESP 16; TEMP 97.9; O2SAT 96
[2024-12-06 08:36] VITALS: BP 108/69; PULSE 88; RESP 19; TEMP 96.7; O2SAT 95
[2024-12-06 20:41] VITALS: BP 101/64; PULSE 92; RESP 17; TEMP 98.1; O2SAT 95
[2024-12-07 08:12] VITALS: BP 100/58; PULSE 98; RESP 16; TEMP 97.6; O2SAT 98
[2024-12-07 20:51] VITALS: BP 104/59; PULSE 63; RESP 16; TEMP 96.6; O2SAT 98
[2024-12-08 08:13] VITALS: BP 110/63; PULSE 79; RESP 16; TEMP 97.9; O2SAT 96
[2024-12-08 20:00] VITALS: BP 100/55; PULSE 68; RESP 17; TEMP 97.9; O2SAT 97
[2024-12-09 13:19] VITALS: BP 98/69; PULSE 81; RESP 14; TEMP 98.2; O2SAT 97
[2024-12-09 20:13] VITALS: BP 105/65; PULSE 78; RESP 18; TEMP 98.1; O2SAT 96
[2024-12-09] MEDS: QUEtiapine FUMARATE 200 MG TABLET PO SCH (20:32)
[2024-12-10 08:42] VITALS: BP 101/63; PULSE 61; RESP 19; TEMP 98.3; O2SAT 96
[2024-12-10] MEDS: ESCITALOPRAM OXALATE 10 MG TABLET PO SCH (09:32)
[2024-12-10 20:06] VITALS: BP 97/56; PULSE 73; RESP 16; TEMP 96.3; O2SAT 98
[2024-12-10 20:08] VITALS: O2SAT 98
[2024-12-11 09:02] VITALS: BP 106/64; PULSE 102; RESP 16; TEMP 98.1; O2SAT 95
[2024-12-11 20:16] VITALS: BP 99/64; PULSE 80; RESP 16; TEMP 98.2; O2SAT 94
[2024-12-12 09:00] VITALS: BP 104/65; PULSE 76; RESP 16; TEMP 98.3; O2SAT 96
[2024-12-12 20:00] VITALS: BP 109/65; PULSE 83; RESP 17; TEMP 97.9; O2SAT 97
[2024-12-13 08:48] VITALS: BP 98/70; PULSE 100; RESP 18; TEMP 97.8; O2SAT 96
[2024-12-13 18:10] VITALS: BP 98/69; PULSE 89; RESP 18; TEMP 97.9; O2SAT 97
[2024-12-13 20:03] VITALS: BP 106/84; PULSE 91; RESP 18; TEMP 97.8; O2SAT 97
[2024-12-14 08:29] VITALS: BP 99/66; PULSE 62; RESP 18; TEMP 97.6; O2SAT 96
[2024-12-14 21:07] VITALS: BP 109/66; PULSE 81; RESP 16; TEMP 97.5; O2SAT 97
[2024-12-15 09:48] VITALS: BP 104/75; PULSE 99; RESP 17; TEMP 98.2; O2SAT 100
[2024-12-15 20:03] VITALS: BP 103/60; PULSE 67; RESP 18; TEMP 97.5
[2024-12-16 09:19] VITALS: BP 101/64; PULSE 98; RESP 16; TEMP 97.4; O2SAT 97
[2024-12-16 20:59] VITALS: BP 104/66; PULSE 84; RESP 16; TEMP 97.5; O2SAT 98
[2024-12-17 08:44] VITALS: BP 113/78; PULSE 93; RESP 16; TEMP 97; O2SAT 98
[2024-12-17 20:35] VITALS: BP 104/68; PULSE 75; RESP 18; TEMP 97.4; O2SAT 97
[2024-12-18 08:11] VITALS: BP 109/73; PULSE 96; RESP 18; TEMP 96.7; O2SAT 95
[2024-12-18 10:10] LABS: BASOPHILS % (AUTO) 0.5 % (0.0-2.0); EOSINOPHILS % (AUTO) 2.7 % (1.0-6.0); HEMATOCRIT 40.3 % (41-53); HEMOGLOBIN 13.4 g/dL (13.5-17.5); LYMPHOCYTES # (AUTO) 0.9 K/uL (1.0-4.8); LYMPHOCYTES % (AUTO) 15.2 % (22.0-44.0); MEAN CORPUSCULAR HGB CONC 33.4 G/dL (31.0-37.0); MEAN CORPUSCULAR VOLUME 90 fL (80-100); MONOCYTES # (AUTO) 0.4 K/uL (0.1-1.0); NEUTROPHILS # (AUTO) 4.6 K/uL (1.8-7.7); NEUTROPHILS % (AUTO) 74.6 % (40.0-70.0); PLATELET COUNT (AUTO) 248 K/uL (150-450); RED BLOOD CELL COUNT(AUTO) 4.48 MIL/uL (4.50-5.90); RED CELL DISTRIBUTION WIDTH 15.2 % (11.5-14.5); WHITE BLOOD COUNT (AUTO) 6.2 K/uL (4.5-11.0)
[2024-12-18] MEDS ORDERED: QUET25TA36 PO (10:12)
[2024-12-18] MEDS ORDERED: EMTR1TAB13 PO (10:12)
[2024-12-18] MEDS ORDERED: QUET200T30 PO (10:12)
[2024-12-18] MEDS ORDERED: DOLU50TA PO (10:12)
[2024-12-18] MEDS ORDERED: ESCI-8 PO (10:12)
[2024-12-18 10:55] LABS: ANION GAP 9 mmol/L (8-16); CALCIUM, TOTAL 9.3 mg/dL (8.8-10.5); CARBON DIOXIDE 29 mmol/L (22-29); CHLORIDE 105 mmol/L (98-107); CREATININE 0.63 mg/dL (0.60-1.30); GLOMERULAR FILTR. RATE CALC > 60 mL/min (>60); GLUCOSE,RANDOM 106 mg/dL (70-110); POTASSIUM 4.4 mmol/L (3.5-5.1); SODIUM SERUM 143 mmol/L (136-145); UREA NITROGEN, BLOOD 19 mg/dL (7-18)
== END 2024-12-18 16:25 | disposition home or self-care (01) | DRG 750 ==
LOC: B2S 12-02 03:36
PROVIDERS: ADMIT Psychiatry & Neurology Psychiatry; ATTEND Psychiatry & Neurology Psychiatry
PROC: GZHZZZZ Group Psychotherapy (ICD-10-PCS; principal; 2024-12-02)
PROC: GZ51ZZZ Individual Psychotherapy, Behavioral (ICD-10-PCS; 2024-12-02)
DX: F25.1 Schizoaffective disorder, depressive type (principal); J69.0 Pneumonitis due to inhalation of food and vomit; R45.851 Suicidal ideations; F41.9 Anxiety disorder, unspecified; Z79.899 Other long term (current) drug therapy; T42.6X1A Poisoning by other antiepileptic and sedative-hypnotic drugs, accidental (unintentional), initial encounter; T44.7X2A Poisoning by beta-adrenoreceptor antagonists, intentional self-harm, initial encounter
CPT/HCPCS: 80048; 80061; 83036; 84443; 85025; 87081